=== PATIENT | male | born 1945 | race Caucasian/White ===

== ENCOUNTER 2019-12-04 12:55 | Emergency (ER) | payer MEDICARE, OTHER ==
[2019-12-04] MEDS ORDERED: Doxycycline 100 MG Cap PO ONE (13:43)
--- NOTE | 2019-12-04 13:51 | EDM.PDOC ---
ED HPI GENERAL MEDICAL PROBLEM - General Chief Complaint: Bite:Animal, Insect Stated Complaint: TICK BITE Time Seen by Provider: 12/04/19 13:12 Source of Information: Reports: Patient History Limitations: Reports: No Limitations - History of Present Illness INITIAL COMMENTS - FREE TEXT/NARRATIVE: 74 yo male presents with a deer tick that was in-bedded into left anterior medial upper arm. He did bring the tick in and positive id as a deer tick that has been attached for greater then 24 hours. mildly itchy. generally feels good. denies headache, chills or fever. - Related Data Allergies Allergy/AdvReac Type Severity Reaction Status Date / Time No Known Allergies Allergy Verified 12/04/19 13:09 Home Meds: Home Meds Apixaban [Eliquis] 2.5 mg PO BID 12/04/19 [History] Aspirin [Halfprin] 81 mg PO DAILY 12/04/19 [History] Ferrous Sulfate [Iron] 1 tab PO BID 12/04/19 [History] Fish Oil/Auxvasse-3 Fatty Acids [Fish Oil 1,000 MG] 1 tab PO DAILY 12/04/19 [ History] Omeprazole 20 mg PO DAILY 12/04/19 [History] carvediloL [Coreg] 3.125 mg PO BID 12/04/19 [History] Past Medical History HEENT History: Reports: Hard of Hearing, Impaired Vision Cardiovascular History: Reports: Afib, Hypertension, DE, Stents Neurological History: Reports: CVA Dermatologic History: Reports: Other (See Below) Other Dermatologic History: dermatitis - Past Surgical History Cardiovascular Surgical History: Reports: Coronary Artery Stent Social & Family History - Tobacco Use Smoking Status *Q: Never Smoker - Caffeine Use Caffeine Use: Reports: Coffee - Recreational Drug Use Recreational Drug Use: No ED ROS GENERAL - Review of Systems Review Of Systems: See Below Constitutional: Denies: Fever, Chills, Malaise, Fatigue Respiratory: Denies: Shortness of Breath Cardiovascular: Denies: Chest Pain ED EXAM, ANIMAL BITE - Physical Exam Exam: See Below Exam Limited By: No Limitations General Appearance: Alert, WD/WN, No Apparent Distress Head: Atraumatic, Normocephalic Respiratory/Chest: No Respiratory Distress Skin Exam: Normal Color, Warm/Dry, Other (left upper arm 1 cm in diameter surrounding vector bite mildly indurated) Course - Vital Signs Last Recorded V/S: Last Vital Signs Temp 36.6 C 12/04/19 13:17 Pulse 83 12/04/19 13:17 Resp 14 12/04/19 13:17 BP 131/84 12/04/19 13:17 Pulse Ox 95 12/04/19 13:17 - Orders/Labs/Meds Orders: Active Orders 24 hr Category Date Time Status Doxycycline [Vibramycin] Med 12/04/19 13:43 Once 200 mg PO ONETIME ONE Departure - Departure Time of Disposition: 13:51 Disposition: Home, Self-Care 01 Condition: Good Clinical Impression: Tick bite Qualifiers: Encounter type: initial encounter Qualified Code(s): W57.XXXA - Bitten or stung by nonvenomous insect and other nonvenomous arthropods, initial encounter - Discharge Information *PRESCRIPTION DRUG MONITORING PROGRAM REVIEWED*: Not Applicable *COPY OF PRESCRIPTION DRUG MONITORING REPORT IN PATIENT LOS: Not Applicable Instructions: Tick Bite Information, Adult Referrals: PCP,None [Primary Care Provider] - Additional Instructions: you received prophylaxis antibiotics for Lyme disease while in Emergency room if you develop fever, chills, body aches over the next 14 days please follow-up with your primary care provider and be sure to tell him about the [place] tick bite Sepsis Event Note - Evaluation Sepsis Screening Result: No Definite Risk - Focused Exam Vital Signs: Vital Signs Temp Pulse Resp BP Pulse Ox 12/04/19 13:17 36.6 C 83 14 131/84 95 Date Exam was Performed: 12/04/19 Time Exam was Performed: 13:44 - My Orders Last 24 Hours: My Active Orders 12/04/19 13:43 Doxycycline [Vibramycin] 200 mg PO ONETIME ONE - Assessment/Plan Last 24 Hours: My Active Orders 12/04/19 13:43 Doxycycline [Vibramycin] 200 mg PO ONETIME ONE
== END 2019-12-04 14:12 | disposition home or self-care (01) ==
LOC: JP.ED 12:55
DX: S40.862A Insect bite (nonvenomous) of left upper arm, initial encounter (principal); I10 Essential (primary) hypertension; I25.2 Old myocardial infarction; I25.10 Atherosclerotic heart disease of native coronary artery without angina pectoris; Z86.73 Personal history of transient ischemic attack (TIA), and cerebral infarction without residual deficits; Z79.899 Other long term (current) drug therapy; Z95.5 Presence of coronary angioplasty implant and graft; Z79.82 Long term (current) use of aspirin; W57.XXXA Bitten or stung by nonvenomous insect and other nonvenomous arthropods, initial encounter
CPT/HCPCS: 99281; A9270; 99283

== ENCOUNTER 2023-01-29 20:58 | Emergency (ER) | payer MEDICARE, OTHER ==
[2023-01-29] MEDS ORDERED: Bacitracin Oint 1 GM U/D Packet TOP ONE (21:02)
[2023-01-29] MEDS ORDERED: Lidocaine 1% 5 ML VIAL INJECT ONE (21:02)
[2023-01-29] MEDS ORDERED: Diphtheria,Pertussis(Acell),Tetanus Vaccine 0.5 ML Syringe IM ONE (21:32)
== END 2023-01-29 21:52 | disposition home or self-care (01) ==
LOC: JP.ED 20:58
DX: S69.91XA Unspecified injury of right wrist, hand and finger(s), initial encounter (principal); I48.91 Unspecified atrial fibrillation; I10 Essential (primary) hypertension; I25.2 Old myocardial infarction; Z95.1 Presence of aortocoronary bypass graft; Z79.82 Long term (current) use of aspirin; Z79.899 Other long term (current) drug therapy; Z23 Encounter for immunization; W45.0XXA Nail entering through skin, initial encounter
CPT/HCPCS: 90471; 90715; 99282; 99283-25